=== PATIENT | male | born 2000 | race Caucasian/White ===

== ENCOUNTER 2020-01-04 09:21 | Observation (INO) | payer OTHER, SELFPAY ==
[2020-01-04] VITALS (12 sets, daily range): BP systolic 109–136; BP diastolic 52–73; PULSE 67–103; RESP 16–94; TEMP 36.4–37.8; O2SAT 16–100; BMI 20.7; BMI 20.5; BMI 20.4
--- NOTE | 2020-01-04 09:34 | CT_ITS ---
STUDY: CT ABDOMEN AND PELVIS WITH CONTRAST REASON FOR EXAM: Male, 19 years old. RLQ PAIN with elevated wbc RADIATION DOSAGE (If Supplied By Facility): CTDIvol = ( 6.88 ) mGy, DLP = ( 370.46 ) mGycm TECHNIQUE: Transaxial images were obtained from the dome of the diaphragm to the symphysis pubis with oral contrast. Oral and amp; IV Gastrografin and amp; 100mL Isovue-300 was administered. Sagittal and coronal images were reconstructed. Individualized dose optimization techniques were used for this CT. COMPARISON: None. FINDINGS: The visualized lung bases are unremarkable. The visualized portions of the heart are within normal limits. Normal liver. Normal gallbladder and extrahepatic biliary system. Normal spleen. Normal pancreas. Normal bilateral adrenal glands. Normal right kidney. Normal left kidney. Normal visualized stomach. Normal small intestine. Retained stool noted throughout the colon. The appendix does not fill with contrast, shows some wall thickening but no significant periappendiceal inflammation or adenopathy is noted. Appendix best seen on coronal recon image 34, and axial images 76-92 Normal abdominal aorta. Normal inferior vena cava. Normal retroperitoneum. Normal urinary bladder. Normal abdominal wall. Normal osseous structures. CT/Abdomen/Pelvis WITH Contrast IMPRESSION: The appendix is abnormally thickened. It is not however fluid-filled and there is no significant periappendiceal fluid, inflammation or adenopathy. Findings suggest early changes of acute appendicitis. Recommend correlation with physical exam and lab results. Retained stool throughout the colon No suspicious solid organ abnormality Electronically Signed: Star Ruiz MD at 11:34 EDT , Service support ,
--- NOTE | 2020-01-04 09:34 | ED.DCSUM_ITS ---
History of Present Illness Chief Complaint: Abd Pain Informant: Patient, Family Narrative: Patient states that last evening he be developed a right lower quadrant pain/abdominal pain. He states it has progressively gotten worse. He notes some anorexia but no vomiting or diarrhea. He denies any fever. Pain is worse with certain movements. No testicular or flank pain. Urinary symptoms. No prior abdominal surgeries. Last meal was around 1800 last night. Past Medical History - Allergies and Home Meds Allergies/Adverse Reactions: Allergies No Known Allergies Allergy (Verified 01/04/20 09:24) Smoking Status: Never smoker Review of Systems General: Denies: Chills, Fever, Sweats Eyes: Denies: Visual changes - bilaterally, Diplopia ENT: Denies: Rhinorrhea, Sore throat Cardiovascular: Denies: Chest pain, Palpitations Respiratory: Denies: Dyspnea, Cough, Dyspnea on exertion Gastrointestinal: Reports: Abdominal pain. Denies: Nausea, Vomiting, Diarrhea, Melena, Hematochezia Genitourinary: Denies: Dysuria, Hematuria, Frequency Musculoskeletal: Denies: Back pain, Extremity Pain Skin: Denies: Rash, Wounds Neurological: Denies: Headache, Weakness, Numbness Physical Exam Vital Signs/Narrative: Vital Signs Temp Pulse Resp BP Pulse Ox 01/04/20 09:22 97.6 F L 103 H 16 125/70 H 99 Inital Vital Signs reviewed: Yes General: Well nourished, Well developed, No Acute Distress Head: Normocephalic, Atraumatic Eyes: Perrl, EOMI ENT: Moist mucous membranes, No rhinorrhea Neck: Supple, Nontender Cardiovascular: Regular rate, Regular rhythm, No murmurs Respiratory: No distress, CTA bilaterally, Chest nontender Abdomen: Soft, Nondistended, Normal bowel sounds, Tender, Guarding, Rebound tenderness Back: Nontender, Normal Inspection Extremities: Nontender, No edema Skin: Normal color, No rash Neurological: Alert, Oriented x3, Cranial nerves II-XII grossly intact, Normal Strength, Normal Sensation Psychological: Normal affect, Normal Mood Diagnostic/Tx/Re-eval Clinical Impression(s) from Imaging Studies Abdomen/Pelvis CT 01/04/20 09:34 IMPRESSION: The appendix is abnormally thickened. It is not however fluid-filled and there is no significant periappendiceal fluid, inflammation or adenopathy. Findings suggest early changes of acute appendicitis. Recommend correlation with physical exam and lab results. Retained stool throughout the colon No suspicious solid organ abnormality Electronically Signed: Star Ruiz MD at 11:34 EDT , Service support , Laboratory Last Values WBC 18.1 K/mm3 (4.4-11.0) H 01/04/20 09:44 RBC 5.15 M/mm3 (4.6-6.2) 01/04/20 09:44 Hgb 15.4 g/dL (13.0-16.5) 01/04/20 09:44 Hct 45.2 % (40-54) 01/04/20 09:44 MCV 87.8 fL (80-94) 01/04/20 09:44 MCH 29.9 pg (27.0-32.0) 01/04/20 09:44 MCHC 34.1 g/dL (32-36) 01/04/20 09:44 RDW Std Deviation 39.5 fl (35.1-43.9) 01/04/20 09:44 RDW Coeff of Elisabeth 12.1 % (11.6-14.6) 01/04/20 09:44 Plt Count 191 K/mm3 (150-450) 01/04/20 09:44 MPV 10.6 fl (6.2-12.0) 01/04/20 09:44 Immature Gran % (Auto) 0.300 % (0.0-0.9) 01/04/20 09:44 Neut % (Auto) 90.0 % (47-70) H 01/04/20 09:44 Lymph % (Auto) 3.3 % (19-41) L 01/04/20 09:44 Falls % (Auto) 6.3 % (0-10) 01/04/20 09:44 Eos % (Auto) 0.0 % (0-5) 01/04/20 09:44 Baso % (Auto) 0.1 % (0-1) 01/04/20 09:44 Absolute Neuts (auto) 16.3 X10^3/uL (2.0-7.7) H 01/04/20 09:44 Absolute Lymphs (auto) 0.60 X10^3/uL (0.83-4.51) L 01/04/20 09:44 Nucleated RBC % 0 % (0-5) 01/04/20 09:44 Sodium 139 mmol/L (136-145) 01/04/20 09:44 Potassium 3.7 mmol/L (3.5-5.1) 01/04/20 09:44 Chloride 106 mmol/L (98-107) 01/04/20 09:44 Carbon Dioxide 30.0 mmol/L (21.0-32.0) 01/04/20 09:44 Anion Gap 3 (5-15) L 01/04/20 09:44 BUN 10 mg/dL (7-18) 01/04/20 09:44 Creatinine 0.90 mg/dL (0.70-1.30) 01/04/20 09:44 Estim Creat Clear Calc 120.78 ml/min 01/04/20 09:44 Est GFR (MDRD) Af Amer 137 mL/min (>60) 01/04/20 09:44 Est GFR (MDRD) Non-Af 113 mL/min (>60) 01/04/20 09:44 BUN/Creatinine Ratio 11.2 RATIO (10-20) 01/04/20 09:44 Glucose 121 mg/dL (74-106) H 01/04/20 09:44 Calcium 8.9 mg/dL (8.5-10.1) 01/04/20 09:44 Total Bilirubin 1.40 mg/dL (0.20-1.00) H 01/04/20 09:44 AST 15 U/L (15-37) 01/04/20 09:44 ALT 17 U/L (16-61) 01/04/20 09:44 Alkaline Phosphatase 71 U/L (45-117) 01/04/20 09:44 Total Protein 7.6 g/dL (6.4-8.2) 01/04/20 09:44 Albumin 4.7 g/dL (3.2-5.0) 01/04/20 09:44 Globulin 2.9 g/dL (2.2-4.2) 01/04/20 09:44 Albumin/Globulin Ratio 1.6 RATIO (0.9-2.4) 01/04/20 09:44 Urine Color Yellow (Yellow) 01/04/20 10:03 Urine Clarity Clear (Clear) 01/04/20 10:03 Urine pH 7.0 (5.0 - 8.0) 01/04/20 10:03 Ur Specific [place] 1.005 (1.002-1.030) 01/04/20 10:03 Urine Protein Negative mg/dl (Negative) 01/04/20 10:03 Urine Glucose (UA) Normal mg/dl (Normal) 01/04/20 10:03 Urine Ketones Negative mg/dl (Negative) 01/04/20 10:03 Urine Occult Blood Negative /ul (Negative) 01/04/20 10:03 Urine Nitrite Negative (Negative) 01/04/20 10:03 Urine Bilirubin Negative mg/dL (Negative) 01/04/20 10:03 Urine Urobilinogen Normal mg/dl (Normal) 01/04/20 10:03 Ur Leukocyte Esterase Negative /ul (Negative) 01/04/20 10:03 Urine RBC 0 SEEN /hpf (0-5) 01/04/20 10:03 Urine WBC 0 SEEN /hpf (0-5) 01/04/20 10:03 Ur Squamous Epith Cells 0 SEEN /hpf (0-5) 01/04/20 10:03 Urine Bacteria 0 SEEN /hpf (None Seen) 01/04/20 10:03 Urine Mucus 0 SEEN /hpf (<or=2+) 01/04/20 10:03 - Medical Decision Making Patient received IV fluids. He declined pain medication. An 18,000 white count and a clinical exam of consistent with acute appendicitis. The CT is equivocal. Dr. Valdivia from general surgery has evaluated the patient and is planning to take him to the operating room. Zosyn was ordered. ED Disposition - Plan for ED Patient: Disposition: Acute Care Hospital [facility] Diagnosis: Acute appendicitis
[2020-01-04 09:52] LABS: Absolute Neutrophil Count 16.3 X10^3/uL (2.0-7.7); Basophil# 0.02 X10^3/uL; Basophil% 0.1 % (0-1); Hematocrit 45.2 % (40-54); Hemoglobin 15.4 g/dL (13.0-16.5); Lymphocyte % 3.3 % (19-41); Mean Corp Hgb Conc 34.1 g/dL (32-36); Mean Corpuscular Hgb 29.9 pg (27.0-32.0); Mean Corpuscular Volume 87.8 fL (80-94); Mean Platelet Vol. 10.6 fl (6.2-12.0); Monocyte# 1.13 X10^3/uL; Monocyte% 6.3 % (0-10); NRBC Flagged by Analyzer 0 % (0-5); Neutrophil # 16.27 X10^3/uL (2.7-7.7); POSITIVE DIFFERENTIAL YES; Platelet Count 191 K/mm3 (150-450); RBC Distribution Width CV 12.1 % (11.6-14.6); RBC Distribution Width SD 39.5 fl (35.1-43.9); Red Blood Count 5.15 M/mm3 (4.6-6.2); White Blood Count 18.1 K/mm3 (4.4-11.0)
[2020-01-04 09:56] LABS: Differential Indicated SCAN CRITERIA MET
[2020-01-04] MEDS: 0.9% Normal Saline 1,000 ML 1000 ML IV (10:05)
[2020-01-04 10:08] LABS: ALB/GLOB Ratio 1.6 RATIO (0.9-2.4); AST(SGOT) 15 U/L (15-37); Alanine Aminotransfer ALT/SGPT 17 U/L (16-61); Albumin, Serum 4.7 g/dL (3.2-5.0); Alkaline Phosphatase 71 U/L (45-117); Anion Gap 3 (5-15); BUN 10 mg/dL (7-18); BUN/Creat Ratio 11.2 RATIO (10-20); Calcium,Total 8.9 mg/dL (8.5-10.1); Chloride 106 mmol/L (98-107); EST Glomerular Filtration Rate 113 mL/min (>60); Est Glom Filt Rate - Afr Amer 137 mL/min (>60); Estimated Creatinine Clearance 120.78 ml/min; Globulin 2.9 g/dL (2.2-4.2); Glucose 121 mg/dL (74-106); Potassium 3.7 mmol/L (3.5-5.1); Protein, Total 7.6 g/dL (6.4-8.2); Sodium Level 139 mmol/L (136-145)
[2020-01-04 10:16] LABS: Bacteria 0 SEEN /hpf (None Seen); Mucous, Urine 0 SEEN /hpf (<or=2+); Red Blood Cells-Urine 0 SEEN /hpf (0-5); Squamous Epithelial Cells - UA 0 SEEN /hpf (0-5); White Blood Cells 0 SEEN /hpf (0-5)
[2020-01-04 10:20] LABS: Color, Urine Yellow (Yellow); Glucose, Dipstick Normal (Normal); Ketone-Dipstick Negative (Negative); Leukocyte Esterase-Dipstick Negative /ul (Negative); Nitrite-Dipstick Negative (Negative); Occult Blood-Urine Negative /ul (Negative); Protein-Dipstick Negative (Negative); Specific Gravity, Urine 1.005 (1.002-1.030); Urine Bilirubin Dipstick Negative (Negative); Urine Clarity Clear (Clear); Urine Urobilinogen Normal (Normal)
[2020-01-04] MEDS: 0.9% Normal Saline 1,000 ML 125 ML IV (11:10)
--- NOTE | 2020-01-04 12:00 | CON.PCM_ITS ---
Problem List (1) Acute appendicitis Status: Acute Qualifiers: Acute appendicitis type: with localized peritonitis Appendicitis gangrene presence: unspecified whether gangrene present Appendicitis perforation presence: unspecified whether perforation present Appendicitis abscess presence: unspecified whether abscess present Qualified Code(s): K35.30 - Acute appendicitis with localized peritonitis, without perforation or gangrene Reason for Consult Date of Consultation: 01/04/20 History of Present Illness: Patient states that last evening he be developed a right lower quadrant pain/abdominal pain. He states it has progressively gotten worse. He notes some anorexia but no vomiting or diarrhea. He denies any fever. Pain is worse with certain movements. No testicular or flank pain. Urinary symptoms. No prior abdominal surgeries. Last meal was around 1800 last night. Past Medical History Allergies No Known Allergies Allergy (Verified 01/04/20 09:24) Home Medications: Ambulatory Orders Medication Instructions Recorded NK 01/04/20 Surgical History: no surgical history Smoking Status: Never smoker Tobacco Use: Non-smoker - *Family History Maternal History Items: No pertinent history Review of Systems Constitutional: Denies: Chills, Fever, Weight Change Cardiovascular: Denies: Chest Pain, Chest Pressure, Chest Tightness, Palpitations Respiratory: Denies: Cough, Hemoptysis, Shortness of breath at rest, Shortness of breath upon exertion, Wheezing Gastrointestinal: Reports: Abdominal Pain. Denies: Nausea, Vomiting Patient Problems: Active and Suspected Problems Acute appendicitis (Acute) - Physical Exam Vitals/I&O's: Vital Signs Temp Pulse Resp BP Pulse Ox 99.2 F H 99 16 130/61 H 99 01/04/20 11:55 01/04/20 11:55 01/04/20 11:55 01/04/20 11:55 01/04/20 11:55 Oxygen Delivery Method Room Air Weight: 145 lb Body Mass Index (BMI) 20.7 Intake and Output for Last 24 Hours 01/02/20 01/03/20 01/04/20 23:59 23:59 23:59 Intake Total 1000 / 1000 Balance 1000 / 1000 General: Alert, Oriented x3 Neck: Supple, No JVD Lungs: Clear to auscultation Cardiovascular: Regular rate, Regular Rhythm, No murmurs Abdomen: Bowel Sounds Present, Soft, Non-Distended, Tender - Patient has right lower quadrant abdominal tenderness. He has no Rovsing sign. He does have peritoneal irritation. Laboratory Results 01/04/20 09:44: WBC 18.1 H, RBC 5.15, Hgb 15.4, Hct 45.2, MCV 87.8, MCH 29.9, MCHC 34.1, RDW Std Deviation 39.5, RDW Coeff of Elisabeth 12.1, Plt Count 191, MPV 10.6, Immature Gran % (Auto) 0.300, Neut % (Auto) 90.0 H, Lymph % (Auto) 3.3 L, [place] % (Auto) 6.3, Eos % (Auto) 0.0, Baso % (Auto) 0.1, Absolute Neuts (auto) 16.3 H, Absolute Lymphs (auto) 0.60 L, Nucleated RBC % 0 01/04/20 09:44: Sodium 139, Potassium 3.7, Chloride 106, Carbon Dioxide 30.0, Anion Gap 3 L, BUN 10, Creatinine 0.90, Estim Creat Clear Calc 120.78, Est GFR (MDRD) Af Amer 137, Est GFR (MDRD) Non-Af 113, BUN/Creatinine Ratio 11.2, Glucose 121 H, Calcium 8.9, Total Bilirubin 1.40 H, AST 15, ALT 17, Alkaline Phosphatase 71, Total Protein 7.6, Albumin 4.7, Globulin 2.9, Albumin/Globulin Ratio 1.6 01/04/20 10:03: Urine Color Yellow, Urine Clarity Clear, Urine pH 7.0, Ur Specific [place] 1.005, Urine Protein Negative, Urine Glucose (UA) Normal, Urine Ketones Negative, Urine Occult Blood Negative, Urine Nitrite Negative, Urine Bilirubin Negative, Urine Urobilinogen Normal, Ur Leukocyte Esterase Negative, Urine RBC 0 SEEN, Urine WBC 0 SEEN, Ur Squamous Epith Cells 0 SEEN, Urine Bacteria 0 SEEN, Urine Mucus 0 SEEN Current Medications Sodium Chloride () 1,000 mls @ 125 mls/hr IV .Q8H LEVI Last Admin: 01/04/20 11:10 Dose: 125 mls/hr Documented by: Piperacillin Sod/Tazobactam (Sod 4.5 gm/ Sodium Chloride) 100 mls @ 200 mls/hr IV X1 ONE Stop: 01/04/20 12:10 Assessment/Plan All Active Problems Acute appendicitis (Acute) My plan is perform a laparoscopic appendectomy. Risk benefits to include bleeding infection possible delayed abscesses which could require further surgeries have been reviewed. Patient also understands that the risk of general anesthetic to include blood clots heart attacks pneumonia strokes pulmonary embolism ups to including . All questions asked were answered patient is willing to proceed. Procedure Criteria Procedure Type: Elective COVID Risk Discussion: The surgeon/proceduralist and patient have discussed in detail the risk of ex posure to and/or potential harm posed by the COVID-19 virus with having a surgery/procedure at this time versus the risk of delaying the surgery/procedure. It is not possible to know either the risk of delaying the surgery or procedure or chance of getting an infection with perfect accuracy, but a joint decision was made between the patient and the surgeon/proceduralist to proceed at this time with the scheduled surgery/procedure as indicated on the consent form. Office Visits / Consults: [id number] IP Consult L4 - Modifier 57
[2020-01-04 14:22] LABS: Probe Check PASS; Specimen Processing Control PASS
--- NOTE | 2020-01-04 16:00 | APP_PTH ---
PATIENT: NATHANAEL BARRERA LOC: [facility]3 U#:[id number] AGE/SX: 19/M ROOM: [facility]305 RE01/04/[address]: Dr. Braxton Valdivia MD : 2000 BED: 1 DIS: 01/05/2020 SPEC #: [id number] RECD: 01/07/20 09:25 STATUS: EULALIA REQ #: [id number] WALT: 01/04/20 16:[address]: Braxton Valdivia DEPT: SURGICAL PATHOLOGY RECD BY: Micky Ngo ENTERED: 01/07/20 10:08 SP TYPE: APPENDIX OTHR DR: Dr. Jc Houston DO Tissues: Appendix, NOS Procedures: Surgery Specimen Level III HEADER OPERATION: Laparoscopic appendectomy PRE-OP DIAGNOSIS: Acute appendicitis TISSUE SUBMITTED: Appendix MICROSCOPIC DIAGNOSIS Appendix, appendectomy: Acute appendicitis and periappendicitis. ZO:yong 01/08/20 MICROSCOPIC DESCRIPTION Slides are reviewed. GROSS DESCRIPTION Received in fixative is one container labeled with the patient's name and designated appendix. The specimen consists of a vermiform appendix measuring 5 cm in length and 1.2 cm in average diameter. No gross perforations are evident. Assistive Technology Specialist sections are submitted in one cassette. / AM:yong 01/07/20 TC:2 CPT: 32274
--- NOTE | 2020-01-04 18:44 | PCM.OPRPT ---
Problem List (1) Acute appendicitis Status: Acute Qualifiers: Acute appendicitis type: with localized peritonitis Appendicitis gangrene presence: without gangrene Appendicitis perforation presence: without perforation Appendicitis abscess presence: without abscess Qualified Code(s): K35.30 - Acute appendicitis with localized peritonitis, without perforation or gangrene Report of Operation Date of Procedure: 01/04/20 Pre-Operative Diagnosis: Acute appendicitis Post-Operative Diagnosis: Same Surgery/Procedure Performed:: Laparoscopic appendectomy Type of Anesthesia:: General Anesthesiologist: Carolyn Dangelo Specimen's removed: Appendix Estimated Blood Loss (mL): < 25 cc Description of Procedure: Patient was brought into the operating room. Placed in the supine position. Under excellent general trach intubation the abdomen was sterilely prepped and draped in usual fashion. Local was injected infraumbilically. Dissection was carried down to the fascia. The fascia is grasped with a Justino. Varies needle was placed inside the abdomen. The abdomen was insufflated to 15 torr. A 10/12 trocar was placed without difficulty. Suprapubic #5 trocar was placed, a left lower quadrant #5 trocar was placed. Both of these under direct visualization without injury to underlying structures. Patient was placed in the headdown and rotated to the left position. Patient was noted to have acute appendicitis. I grasped the appendix came down the mesoappendix with the Enseal I transected the base of the appendix with a 45 linear cutter I placed a specimen in a specimen bag and delivered through the umbilical port without difficulty. I used touch cautery on the appendiceal stump good hemostasis was achieved I irrigated out the pelvis and the right upper quadrant all the irrigant was clear there was no signs of any purulent material. I deflated the abdomen. I removed the trochars. I closed the fascia the umbilical port with a [id number] stitch of 0 Vicryl. Skin incisions were closed with subcuticular stitches of 4-0 Monocryl. Steri-Strips were applied sterile dressings were applied and the patient tolerated the procedure well. - Admit VTE Documentation VTE Present on Admission: No VTE Mechan Device Prophylaxis: SCD's VTE Pharm Prophylaxis ordered?: No Reason prophylaxis not ordered:: Treatment Not Indicated [id number]: [id number] Laparoscopy appendectomy
[2020-01-04] MEDS: Lactated Ringers 1,000 ML 100 ML IV (18:45)
[2020-01-04] MEDS: 0.9% Normal Saline 1,000 ML 75 ML IV (20:32)
[2020-01-05 00:17] VITALS: BP 116/69; PULSE 76; RESP 16; TEMP 36.9; O2SAT 98
[2020-01-05 04:34] VITALS: BP 117/62; PULSE 62; RESP 16; TEMP 36.6; O2SAT 100
[2020-01-05 07:52] VITALS: BP 140/56; PULSE 69; RESP 18; TEMP 36.8; O2SAT 99
--- NOTE | 2020-01-05 08:56 | DCINST_ITS ---
Discharge Diet: Light diet - advance as tolerated - if you have questions about your diet instructions, please talk to you doctor. Discharge Activity: May Not Drive - for 3-5 days or while taking narcotic pain meds. May shower in (days): 1 Call your doctor if your incision/area has: Continuous Slow Oozing, Sudden Increased Bleeding, Increased Pain/ Swelling, Increased Redness, Foul Smelling Discharge Call your doctor if you observe: Fever of 101 or Higher Suture Line Care: Avoid Pulling/Pushing, Avoid Pinching/Bending Additional Dressing/Incision Instructions:: Keep dressing clean and dry. Change or remove dressing in 2 days. Leave steri strips for 1 week. May protect with a gauze bandaid. Medications to take at Discharge NK 01/04/20 Allergies/Adverse Reactions: Allergies No Known Allergies Allergy (Verified 01/04/20 09:24) Primary Care Physician: Jc Houston DO [Primary Care Provider] - Test Results: Test results from this visit will be discussed in further detail at your follow- up appointment, if applicable. Please Follow Up With: Braxton Valdivia MD - [phone] When: Call to make a follow up appointment with your doctor in 1 week.
== END 2020-01-05 10:59 | disposition home or self-care (01) ==
LOC: ED 12:03 → SDC 12:16 → MS3 12:17 → SDC 15:49 → MS3 15:49
PROVIDERS: Admitting Provider Surgery; Emergency Provider Emergency Medicine; PCP Family Medicine; Visit Provider Surgery
PROC: 0DTJ4ZZ Resection of Appendix, Percutaneous Endoscopic Approach (ICD-10-PCS; CPT 44970; principal; 2020-01-04 15:40)
DX: K35.31 Acute appendicitis with localized peritonitis and gangrene, without perforation (principal)
CPT/HCPCS: 44970; 74177; 80053; 81001; 85025; 87635; 88304; 94799; 96361; 96365; 96366; 99218; 99285; J7030; J7050; J7120; Q9967; A4216; C1760; G0378; J2405; U0003